=== PATIENT | male | born 1955 | race Caucasian/White ===

== ENCOUNTER 2021-12-03 05:58 | Inpatient (IN) ==
[2021-12-03] MEDS ORDERED: Buffered Lidocaine 1% SYRIN 1 ml INTRADERM ONE (06:00)
[2021-12-03] MEDS ORDERED: Lactated Ringers 1000 ml BAG 1,000 ML IV SCH (06:00)
[2021-12-03] MEDS ORDERED: ceFAZolin 2 GM in NS PREMIX 2 GM/100 ML BAG IVPB ONE (06:15)
[2021-12-03] MEDS ORDERED: Midazolam 5 mg/5 ml VIAL 1 mg/ml 5 ml VIAL (5 mg) ONE ×2 (07:04→08:19)
[2021-12-03] MEDS ORDERED: fentaNYL 250 mcg/5 ml 50 MCG/ML 5 ml VIAL (250 MCG) ONE (07:04)
[2021-12-03] MEDS ORDERED: Bupivacaine 0.5% W/EPI SDV 10 ML VIAL INJ ONE (07:06)
[2021-12-03] MEDS ORDERED: Vancomycin 1,000 MG VIAL ONE (07:07)
[2021-12-03] MEDS ORDERED: Dexmedetomidine 200 mcg/2 ml 2 ml VIAL (200 mcg) ONE (07:08)
[2021-12-03] MEDS ORDERED: ROPIVACAINE 5 MG/ML 30 ML BTL (0.5%) ONE (07:09)
[2021-12-03] MEDS ORDERED: Tranexamic Acid 1,000 MG/10 ML SDV ONE (08:16)
[2021-12-03] MEDS ORDERED: Propofol 10 MG/ML 20 ML BTL ONE ×2 (08:28→09:52)
[2021-12-03] MEDS ORDERED: Lidocaine 2% PF 5 ML VIAL ONE (08:29)
[2021-12-03] MEDS ORDERED: Ondansetron 4 mg VIAL 2 MG/ML 2 ml VIAL IV PRN ×2 (10:26→10:46)
[2021-12-03] MEDS ORDERED: Naloxone 0.4 mg VIAL 0.4 mg/ml 1 ml VIAL IV PRN (10:26)
[2021-12-03] MEDS ORDERED: fentaNYL 100 mcg/2 ml 50 MCG/ML VIAL IV PRN (10:26)
[2021-12-03] MEDS ORDERED: oxyCODONE/Acetamin 5/325 mg TAB PO PRN (10:26)
[2021-12-03] MEDS ORDERED: DiMENhydriNATE IV 50 mg/ml 1 ml VIAL IV PUSH PRN (10:26)
[2021-12-03] MEDS ORDERED: Ondansetron ODT 4 mg TAB 4 MG TAB PO PRN (10:46)
[2021-12-03] MEDS ORDERED: diPHENhydraMINE 25 mg TAB PO PRN (10:46)
[2021-12-03] MEDS ORDERED: Magnesium Hydroxide LIQ 30 ML UDC PO PRN (10:46)
[2021-12-03] MEDS ORDERED: Lactulose 30 ml UDC PO PRN (10:46)
[2021-12-03] MEDS ORDERED: diPHENhydraMINE IV 50 MG/ML 1 ml VIAL (BENADRYL) IV PRN (10:46)
[2021-12-03] MEDS: Lactated Ringers 1000 ml BAG 1,000 ML IV SCH ×2 (11:54→21:48)
[2021-12-03] MEDS: ceFAZolin 1 GM ADVAN 1 GM in NS 0.9% 50 ML 50 ML IVPB SCH (15:27)
[2021-12-03] MEDS: Magnesium Hydroxide LIQ 30 ML UDC PO SCH ×2 (21:22→21:45)
[2021-12-04] MEDS: ceFAZolin 1 GM ADVAN 1 GM in NS 0.9% 50 ML 50 ML IVPB SCH ×2 (00:12→08:48)
[2021-12-04 05:39] LABS: Hematocrit 32 % (42-52); Hemoglobin 10.6 g/dL (14.0-18.0); Mean Platelet Volume 6.7 fL (7.4-10.4); Platelet Count 193 10^3/uL (150-450)
[2021-12-04 05:53] LABS: Potassium 3.8 mmol/L (3.5-5.0); eGFR CKD-EPI 97.7 (>60)
[2021-12-04] MEDS: Magnesium Hydroxide LIQ 30 ML UDC PO SCH (08:11)
[2021-12-04] MEDS ORDERED: Vitamin THERAPEUTIC TAB PO SCH (09:00)
[2021-12-04] MEDS: Lactated Ringers 1000 ml BAG 1,000 ML IV SCH (09:22)
[2021-12-04 12:02] VITALS: BP 116/73
== END 2021-12-04 16:30 | disposition home or self-care (01) | DRG 302 ==
LOC: AA 05:58 → SSU 11:40
PROVIDERS: ADMIT Orthopaedic Surgery; ATTEND Orthopaedic Surgery

== ENCOUNTER 2022-02-11 05:41 | Inpatient (IN) ==
[2022-02-11] MEDS ORDERED: Lactated Ringers 1000 ml BAG 1,000 ML IV SCH (06:00)
[2022-02-11] MEDS ORDERED: Buffered Lidocaine 1% SYRIN 1 ml INTRADERM ONE (06:00)
[2022-02-11] MEDS ORDERED: ceFAZolin 2 GM in NS PREMIX 2 GM/100 ML BAG IVPB ONE (06:02)
[2022-02-11] MEDS ORDERED: Lidocaine 2% PF 5 ML VIAL ONE (06:54)
[2022-02-11] MEDS ORDERED: Propofol 10 MG/ML 20 ML BTL ONE (06:55)
[2022-02-11] MEDS ORDERED: Phenylephrine IV 10 MG/ML 1 ml VIAL ONE (06:59)
[2022-02-11] MEDS ORDERED: Lidocaine 1% MPF 5 ML VIAL ONE (07:03)
[2022-02-11] MEDS ORDERED: Rocuronium 50 mg VIAL 10 mg/ml 5 ml VIAL (50 mg) ONE (07:03)
[2022-02-11] MEDS ORDERED: ROPIVACAINE 5 MG/ML 30 ML BTL (0.5%) ONE (07:03)
[2022-02-11] MEDS ORDERED: fentaNYL 250 mcg/5 ml 50 MCG/ML 5 ml VIAL (250 MCG) ONE (07:04)
[2022-02-11] MEDS ORDERED: Bupivacaine 0.25% SDV PF 10 ML VIAL INJ ONE (07:16)
[2022-02-11] MEDS ORDERED: Vancomycin 1,000 MG VIAL ONE (07:16)
[2022-02-11] MEDS ORDERED: Midazolam 5 mg/5 ml VIAL 1 mg/ml 5 ml VIAL (5 mg) ONE (07:18)
[2022-02-11] MEDS ORDERED: fentaNYL 100 mcg/2 ml 50 MCG/ML VIAL ONE (07:18)
[2022-02-11] MEDS ORDERED: Midazolam 2 mg/2 ml VIAL 1 mg/ml 2 ml VIAL (2 mg) ONE (07:20)
[2022-02-11] MEDS ORDERED: DiMENhydriNATE IV 50 mg/ml 1 ml VIAL IV PUSH PRN (08:14)
[2022-02-11] MEDS ORDERED: Naloxone 0.4 mg VIAL 0.4 mg/ml 1 ml VIAL IV PRN (08:14)
[2022-02-11] MEDS ORDERED: HYDROmorphone 1 MG/1 ML SYRINGE IV PRN (08:14)
[2022-02-11] MEDS ORDERED: Sterile Water for Inj 10 ML ONE (08:55)
[2022-02-11] MEDS ORDERED: Ketamine HCL 50 mg/ml 10 ml VIAL (500 MG) ONE (08:55)
[2022-02-11] MEDS ORDERED: Ondansetron 4 mg VIAL 2 MG/ML 2 ml VIAL ONE (09:00)
[2022-02-11] MEDS ORDERED: Metoclopramide 5 MG/ML VIAL (10 mg) ONE (09:00)
[2022-02-11] MEDS ORDERED: Dexamethasone IV 4 MG/ML VIAL 1 ml VIAL ONE (09:00)
[2022-02-11] MEDS ORDERED: EPHEDrine (Pressors) 50 MG/ML VIAL ONE (09:00)
[2022-02-11] MEDS ORDERED: Acetaminophen IV 1 GM/100ML 100 ML IV ONE (09:05)
[2022-02-11] MEDS ORDERED: Magnesium Hydroxide LIQ 30 ML UDC PO PRN (11:12)
[2022-02-11] MEDS ORDERED: Lactulose 30 ml UDC PO PRN (11:12)
[2022-02-11] MEDS ORDERED: diPHENhydraMINE 25 mg TAB PO PRN (11:12)
[2022-02-11] MEDS ORDERED: Ondansetron ODT 4 mg TAB 4 MG TAB PO PRN (11:12)
[2022-02-11] MEDS ORDERED: diPHENhydraMINE IV 50 MG/ML 1 ml VIAL (BENADRYL) IV PRN (11:12)
[2022-02-11] MEDS ORDERED: Morphine 2 MG/ML SYRINGE IV PRN (11:12)
[2022-02-11] MEDS ORDERED: Ondansetron 4 mg VIAL 2 MG/ML 2 ml VIAL IV PRN (11:12)
[2022-02-11] MEDS: Lactated Ringers 1000 ml BAG 1,000 ML IV SCH ×2 (13:31→23:05)
[2022-02-11] MEDS ORDERED: ceFAZolin 1 GM ADVAN 1 GM in NS 0.9% 50 ML 50 ML IVPB SCH (16:00)
[2022-02-11] MEDS: ceFAZolin VIAL 1 GM in NS 0.9% 50 ML 50 ML IVPB SCH (16:46)
[2022-02-11] MEDS: Magnesium Hydroxide LIQ 30 ML UDC PO SCH (21:30)
[2022-02-12] MEDS: ceFAZolin VIAL 1 GM in NS 0.9% 50 ML 50 ML IVPB SCH ×2 (01:00→08:39)
[2022-02-12 05:56] LABS: Hematocrit 33 % (42-52); Hemoglobin 11.2 g/dL (14.0-18.0); Mean Platelet Volume 6.7 fL (7.4-10.4); Platelet Count 208 10^3/uL (150-450)
[2022-02-12 06:25] LABS: Calcium 8.4 mg/dL (8.6-10.3); Potassium 4.1 mmol/L (3.5-5.0)
[2022-02-12] MEDS: Magnesium Hydroxide LIQ 30 ML UDC PO SCH (08:19)
[2022-02-12] MEDS ORDERED: Vitamin THERAPEUTIC TAB PO SCH (09:00)
[2022-02-12 11:26] VITALS: BP 113/70
== END 2022-02-12 14:00 | disposition home or self-care (01) | DRG 302 ==
LOC: AA 05:41 → SSU 13:33
PROVIDERS: ADMIT Orthopaedic Surgery; ATTEND Orthopaedic Surgery